=== PATIENT | female | born 1970 | race Caucasian/White ===

== ENCOUNTER → 2017-01-18 | Outpatient (CLI) | payer BC, OTHER ==
--- NOTE | 2017-01-18 10:17 | EKG ---
[address] [address] Measurements Intervals [place] Rate: 79 P: 51 MO: 173 QRS: 69 QRSD: 71 T: 54 QT: 359 QTc: 394 Interpretive Statements SINUS RHYTHM No previous ECG available for comparison Electronically Signed On 01-18-17 15:35:52 MDT by Earl Glez MD [email or web address]
--- NOTE | 2017-01-18 10:31 | DI ---
PA /LATERAL CHEST X-RAY, 01/18/2017 9:57 AM : Clinical History: Well woman exam. Previous Exam: None at this facility. There is no acute soft tissue or bony abnormality. Heart size is normal. Lungs are clear. Mediastinal structures are normal. There are no pulmonary nodules. Reading: Normal chest x-ray.
== END ==
LOC: MOB LAB 10:10
PROVIDERS: ATTEND Family Medicine
DX: R06.02 Shortness of breath (principal); R05 Cough
CPT/HCPCS: 71020; 93005; 93010

== ENCOUNTER → 2017-01-22 | Outpatient (CLI) | payer BC, OTHER ==
[2017-01-22 08:16] LABS: BASOPHILS # (AUTO) 0.07 10*3/UL; BASOPHILS % (AUTO) 0.7 % (0-1); EOSINOPHILS % (AUTO) 2.1 % (0-8); HEMATOCRIT 42.4 % (37.0-47.0); HEMOGLOBIN 14.4 g/dL (12.0-16.0); LYMPHOCYTES # (AUTO) 2.78 10*3/uL; MEAN CORPUSCULAR HEMOGLOBIN 30.6 PG (27-31); MEAN PLATELET VOLUME 10.9 FL (7.4-12.2); MONOCYTES # (AUTO) 0.49 10*3/UL (0.3-0.8); MONOCYTES % (AUTO) 5.1 % (5-15); NEUTROPHILS # (AUTO) 6.09 10*3/UL; RED BLOOD COUNT 4.71 10^6/uL (4.20-5.40)
[2017-01-22 08:24] LABS: PLATELET MORPHOLOGY COMMENT NORMAL MORPHOLOGY (NORM); RBC MORPHOLOGY COMMENT NORMAL MORPHOLOGY (NORM); WBC MORPHOLOGY COMMENT NORMAL MORPHOLOGY (NORM)
[2017-01-22 09:07] LABS: BLOOD UREA NITROGEN 12 mg/dL (7-22); CHOL/HDL RATIO 3.61 RATIO (0-4.0); EST GLOMERULAR FILTRATION > 60 (>60 ml/min/1.73m(2)); HDL CHOLESTEROL 39 mg/dL (40-150); SERUM ALBUMIN 4.1 g/dL (3.5-4.8); SERUM CHOLESTEROL 141 mg/dL (120-200)
[2017-01-22 09:21] LABS: FREE T4 (FREE THYROXINE) 0.95 ng/dL (0.93-1.71)
== END ==
LOC: LAB 07:51
PROVIDERS: ATTEND Family Medicine
DX: Z00.01 Encounter for general adult medical examination with abnormal findings (principal); R05 Cough; R06.02 Shortness of breath
CPT/HCPCS: 36415; 80053; 80061; 82306; 83036; 84439; 84443; 85025

== ENCOUNTER → 2017-05-08 | Outpatient (CLI) | payer BC, OTHER ==
--- NOTE | 2017-05-08 22:41 | DI ---
US PELVIC-TRANSVAGINAL, US PELVIC COMPLETE (NON OB),05/08/2017 2:50 PM: Clinical History: Menometrorrhagia Previous Exam: December 15, 2015 Findings: Multiple transabdominal and transvaginal grayscale and color Doppler sonographic images are obtained through the pelvis, and demonstrate a normal-appearing uterus measuring 10.3 x 7.1 x 5.3 cm with an e ndometrial stripe measuring 7 mm. A few nabothian cysts were seen. The right ovary measures 2.8 x 1.5 x 1.3 cm with normal Doppler flow. The left ovary measured 3.2 x 2.2 x 2.0 cm also with normal Doppler flow. Impression: Normal pelvic ultrasound.
== END ==
LOC: US 14:37
PROVIDERS: ATTEND Obstetrics & Gynecology
DX: N85.2 Hypertrophy of uterus (principal); N92.1 Excessive and frequent menstruation with irregular cycle; R32 Unspecified urinary incontinence
CPT/HCPCS: 76830; 76856

== ENCOUNTER 2017-05-23 06:33 | Day surgery (SDC) | payer BC, OTHER ==
[~2017-05-23 06:33] MED LIST: LIDOCAINE W/ SODIUM BICARB 0.5 ML SYR ONE; Lactated Ringers 0 ML PRIMARY IV ONE
[2017-05-23] MEDS ORDERED: LIDOCAINE MPF 2% - 5 ML (20 MG/1 ML) ONE (06:43)
[2017-05-23] MEDS ORDERED: MIDAZOLAM 5 MG/1 ML ONE (06:43)
[2017-05-23] MEDS ORDERED: fentaNYL Inj 250 MCG/5 ML VIAL ONE (06:43)
[2017-05-23] MEDS ORDERED: ONDANSETRON 4 MG/2 ML VIAL IVP PRN (06:48)
[2017-05-23] MEDS ORDERED: HYDROmorphone 2 MG/1 ML IVP PRN (06:48)
[2017-05-23] MEDS ORDERED: NORMAL SALINE 10 ML SYRINGE FLUSH IVP PRN ×2 (06:48→08:30)
[2017-05-23] MEDS ORDERED: PROMETHAZINE 25 MG/1 ML VIAL IM PRN (06:48)
[2017-05-23] MEDS ORDERED: fentaNYL Inj 100 MCG/2 ML VIAL IVP PRN (06:48)
[2017-05-23 06:52] LABS: BILIRUBIN,URINE NEGATIVE (NEG); CLARITY,URINE Slightly Cloudy (CLEAR); COLOR,URINE YELLOW; GLUCOSE, URINE (UA) NEGATIVE (NEG); NITRATE,URINE NEGATIVE (NEG); OCCULT BLOOD,URINE MODERATE (NEG); PH,URINE 5.5 (5.0-8.5); PROTEIN,URINE NEGATIVE (NEG); UROBILINOGEN,URINE 0.2 mg/dL (0.2)
[2017-05-23 06:58] LABS: BACTERIA,URINE MODERATE; SQUAMOUS EPITHELIAL CELL,UR MANY; URINE CRYSTALS MANY
[2017-05-23] MEDS ORDERED: Lactated Ringers 1,000 ML PRIMARY IV SCH (07:00)
--- NOTE | 2017-05-23 07:40 | OB.OP.NOTE ---
Operative Report Surgeon: Kumar Anesthesia Type: General (With LMA) Anesthesia Provider: Abel Anderson CRNA Surgery Date: 05/23/17 Preoperative Diagnosis: Menometrorrhagia, cervical stenosis with unsuccessful endometrial biopsy in clinic, history of endometrial ablation with NovaSure in 2012, endometrial stripe 7 mm Postoperative Diagnosis: Same plus cervical stenosis or endometrial synechiae Procedure: Exam under anesthesia. Dilation of cervix. Hysteroscopy. Curettage of endometrial lining Estimated Blood Loss (mL): 10 Fluids: 1000 mL LR Complications: No evidence of uterine perforation Findings at Surgery: Cervical stenosis or endometrial synechiae The uterus sounded between 4-1/2 cm and 5-1/2 cm. This just may be the internal OS of the cervix. Curettings of either the cervix or lower uterine segment was completed and was sent to pathology No evidence of uterine perforation Indications for the Procedure: The patient has menometrorrhagia with 10 days of bleeding and one heavy day of bleeding. The patient was to have an endometrial biopsy a year ago but this was not completed. Recent attempt at endometrial biopsy yielded the [place] not being able to be advanced perhaps secondary to the history of endometrial ablation with NovaSure. Endometrial stripe on ultrasound was 7 mm. The patient and I discussed options and she chose hysteroscopy D&C and possible endometrial ablation with NovaSure again for her MMR. The risks, benefits, alternatives and indications were discussed with the patient and the consent form was signed. Description of Procedure: The patient was brought to the operating room after the risks, benefits, alternatives and indications were discussed with the patient in detail. The patient was placed in dorsal supine position. The patient underwent general anesthesia with LMA. [facility]. An exam under anesthesia was completed. The patient had previously been prescribed Cytotec for cervical ripening to be administered vaginally by the patient for the 3 evenings prior to the surgery. Any remaining tablets of the Cytotec was removed at the time of the exam under anesthesia. The patient was prepped and draped sterilely. A timeout was completed to document the patient and the procedures. The patient was identified. A weighted speculum was placed in the patient's posterior vagina and a Perry retractor was placed anteriorly and the cervix was visualized and the anterior lip of the cervix was grasped with a tenaculum. The uterine sound was used and the cervix or uterus sounded to 4.5 cm on the left side and up to 5.5 cm to perhaps almost 6 cm on the patient's right side to the external OS of the cervix. I could not place the uterine sound nor the dilators any further with gentle probing to find the internal OS I then placed the hysteroscope and I could not find the internal OS. Therefore either secondary to the history of the NovaSure endometrial ablation I could not have the uterine sound or dilators placed through the cervical OS or there was endometrial tissue at the 4-1/2-5-1/2 cm sounding area and this is the area that the patient has her menses from. I did place a tenaculum on the inferior aspect of the cervix to try to manipulate the cervix when I was trying to sound the uterus. This was completed in hopes that it may straighten out the uterus and allow for the uterine sound to be placed. However, I was not able to sound the uterus any further than 4.5-5.5 or perhaps 6 cm to the external OS. Therefore, I did curet and obtained just minimal tissue and there was good hemostasis from the curetting site. Again, this may be endocervical or may be lower uterine segment. I will wait for the pathology report to determine this. The uterus measured 10 cm on ultrasound. And there was a 7 mm endometrial stripe on ultrasound. Therefore, my instruments may not have been in the endometrium but only in the endocervical area. Photographs were taken of the either endocervical canal or lower uterine segment. The hysteroscope and curettage was completed. The tenaculums were removed and there was some bleeding from the tenaculum sites and I used 3-0 or 4-0 Vicryl suture to in [id number] stitches to allow for hemostasis. At the end of the procedure there was good hemostasis. I irrigated the patient' s vagina and cervix and there was good hemostasis noted. The patient was awakened from her anesthesia with LMA removed and the patient was brought to the PACU. I did speak with the patient's family. The patient will be discharged home if doing well after recovery from anesthesia. Pathology pending. Plan: The patient will be discharged home if doing well after recovery from anesthesia. Pathology pending.
[2017-05-23] MEDS ORDERED: ONDANSETRON 4 MG/2 ML VIAL ONE (08:00)
[2017-05-23] MEDS ORDERED: KETOROLAC 30 MG/1 ML VIAL ONE (08:00)
[2017-05-23] MEDS ORDERED: Lactated Ringers 1,000 ML PRIMARY IV ONE (08:12)
[2017-05-23] MEDS ORDERED: HYDROcodone-APAP 5 MG -325 MG TABLET PO PRN (08:30)
[2017-05-23 08:49] LABS: URINE SAMPLE TYPE CLEAN CATCH URINE
[2017-05-23 10:11] VITALS: RESP 13; TEMP 97.3
== END 2017-05-23 09:38 | disposition home or self-care (01) ==
LOC: SDSC 06:33
PROVIDERS: ATTEND Obstetrics & Gynecology
DX: N88.2 Stricture and stenosis of cervix uteri (principal); N85.6 Intrauterine synechiae
CPT/HCPCS: 58558; 81001; 84703; J1885; J2001; J2250; J2405; J2704; J3010; J7120